=== PATIENT | female | born 1990 | race Caucasian/White ===

== ENCOUNTER → 2017-08-05 | Outpatient (CLI) | payer OTHER, MEDICAID ==
[~2017-08-05] MED LIST: AZIT-21 PO; CEPH500C PO; DCS100C PO; DOCU100C37 PO; FLC150T PO; FLUO20CA42 PO; HYDR-3720 PO; IBP800T PO; IBUP-1780 PO; OXYC-465 PO; PEDI1TAB35 PO; PREN1TAB86 PO
--- NOTE | 2017-08-05 19:55 | Diagnostic Imaging Report ---
EXAM: CERVICAL SPINE 3 VIEWS OR LESS INDICATION: CERVICAL PAIN/HEADACHE FAMILY HISTORY OF CERVICAL STENOSIS COMPARISON: None. FINDINGS: Normal alignment. Vertebral body heights are preserved. No substantial spondylotic change. No acute osseous findings. Normal prevertebral soft tissues. IMPRESSION: Normal cervical spine radiographs. Dictated by: Dictated on workstation # [id number]
== END ==
LOC: RAD 17:07
PROVIDERS: ATTEND Chiropractor Sports Physician
DX: M54.2 Cervicalgia (principal); R51 Headache; Z82.69 Family history of other diseases of the musculoskeletal system and connective tissue
CPT/HCPCS: 72040

== ENCOUNTER → 2017-08-09 | Outpatient (CLI) | payer OTHER, MEDICAID ==
[~2017-08-09] VITALS: Ht 157.5 cm; Wt 79.4 kg
[~2017-08-09] MED LIST changes: +LIDOCAINE 1% INJ 20 ML (XYLOCAINE) VIAL INJ ONE; +LIDOCAINE PF 1% 5 ML (XYLOCAINE) AMP ONE; +cefTRIAXone 250 MG (ROCEPHIN) VIAL IM NR
[2017-08-09 16:11] VITALS: BP 131/82
== END ==
LOC: SDC 15:17
PROVIDERS: ATTEND Obstetrics & Gynecology
DX: A54.9 Gonococcal infection, unspecified (principal)
CPT/HCPCS: 96372

== ENCOUNTER → 2018-11-06 | Outpatient (CLI) | payer MEDICAID, OTHER ==
[~2018-11-06] MED LIST changes: -LIDOCAINE 1% INJ 20 ML (XYLOCAINE) VIAL INJ ONE; -LIDOCAINE PF 1% 5 ML (XYLOCAINE) AMP ONE; -cefTRIAXone 250 MG (ROCEPHIN) VIAL IM NR
== END ==
LOC: LABNPT 12:05
PROVIDERS: ATTEND Nurse Practitioner Family
DX: R30.9 Painful micturition, unspecified (principal)
CPT/HCPCS: 87088

== ENCOUNTER → 2020-07-09 | Outpatient (CLI) | payer OTHER ==
[~2020-07-09] MED LIST changes: -OXYC-465 PO; +OXYC-556 PO
== END ==
LOC: LABNPT 11:14
PROVIDERS: ATTEND Obstetrics & Gynecology
DX: O14.90 Unspecified pre-eclampsia, unspecified trimester (principal); Z3A.00 Weeks of gestation of pregnancy not specified
CPT/HCPCS: 82570; 84156

== ENCOUNTER 2020-07-10 18:12 | Outpatient (CLI) | payer OTHER, MEDICAID ==
[~2020-07-10] VITALS: Ht 157.5 cm; Wt 94.4 kg
--- NOTE | 2020-07-10 18:30 | NUR ---
DANIELLA BALBUENA presented to unit via ambulation from ED with c/o headache. Pt. weighed, gowned, voided, and to bed. EFHM and TOCO applied, VS taken. Pt.J oriented to bed controls, call light, TV, heat, and A/C controls.
--- NOTE | 2020-07-10 18:48 | NUR ---
twin . Twin A -female- located in Lt.lower abd. Twin B-male- located in upper Rt./mid abd. reports +FM. denies vaginal bleeding, leaking fluid & ctx's @ time. +FM. reports elevated BP in office yesterday. LYMAN today unrelieved with Tylenol. LYMAN located frontal & extending up middle of head and down neck. reports "floaters" yesterday, denies today.
[2020-07-10 18:50] VITALS: BP 166/100
[2020-07-10 19:00] VITALS: BP 154/98
--- NOTE | 2020-07-10 19:10 | NUR ---
Report given to DENNISE Silver.
[2020-07-10 19:11] LABS: BILIRUBIN,URINE NEGATIVE (NEGATIVE); COLOR,URINE YELLOW; GLUCOSE, URINE (UA) NEGATIVE (NEGATIVE); KETONES,URINE NEGATIVE (NEGATIVE); LEUKOCYTE ESTERASE ,URINE 1+ (NEGATIVE); NITRITE,URINE NEGATIVE (NEGATIVE); PH,URINE 6.5 (5-9); PROTEIN,URINE NEGATIVE (NEGATIVE)
[2020-07-10 19:16] LABS: CLARITY,URINE SL CLOUDY
[2020-07-10 19:17] LABS: BACTERIA,URINE MODERATE /HPF; WBC,URINE 0-2 /HPF
--- NOTE | 2020-07-10 19:31 | NUR ---
Dr. Villalobos called with report of pt. Informed that pt has had a headache today that comes and goes with Tylenol. Pt. rates pain at a five at the worst. Pt denies seeing spots or blurry vision. Informed of pt. current blood pressures and other vitals. UA reviewed with DrGeorge Informed that pt SVE showed a closed cervix with no contractions. informed that babies strips are reactive. states that labs were done in the office yesterday, and were reassuring. states that he is comfortable discharging pt at this time. Pt can follow up in the office if symptoms worsen.
--- NOTE | 2020-07-10 19:50 | NUR ---
Nurse reviewed pt discharge paperwork. Pt. left unit without problem. Pt. shows no s/s of distress.
--- NOTE | 2020-07-11 08:08 | Physician Query-Final Dx ---
ANTOINE MCCRAY 07/11/20 0808: Clinic Account Progress/Dx Physician Query: Please give diagnosis Please include # weeks gestation Date of Service Jul 10, 2020 at 18:12 DENNIS MAYO MD 07/11/20 0917: Clinic Account Progress/Dx DIAGNOSIS: Diagnosis at 30 weeks with false labor ANTOINE MCCRAY Jul 11, 2020 08:08 DENNIS MAYO MD Jul 11, 2020 09:17
== END 2020-07-10 19:50 | disposition home or self-care (01) ==
LOC: WSo 18:12 → LDRP 18:14 → WSo 19:50
PROVIDERS: ATTEND Obstetrics & Gynecology
DX: O47.03 False labor before 37 completed weeks of gestation, third trimester (principal); Z3A.30 30 weeks gestation of pregnancy
CPT/HCPCS: 81000; 87088; G0463; 99213

== ENCOUNTER 2020-09-02 05:46 | Outpatient (RCR) | payer OTHER, MEDICAID ==
[~2020-09-02] VITALS: Ht 157 cm; Wt 76.8 kg
[~2020-09-02 05:46] MED LIST changes: +MULT-1136 PO
== END 2020-09-02 16:00 | disposition home or self-care (01) ==
LOC: PREOP 05:46
PROVIDERS: ATTEND Obstetrics & Gynecology
DX: Z01.818 Encounter for other preprocedural examination (principal)

== ENCOUNTER 2020-10-16 05:47 | Outpatient (RCR) | payer OTHER, MEDICAID | END 2021-01-14 | disposition home or self-care (01) | LOC: PREOP 05:47 | PROVIDERS: ATTEND Obstetrics & Gynecology | DX: Z01.818 Encounter for other preprocedural examination (principal) ==

== ENCOUNTER 2021-02-11 17:11 | Day surgery (SDC) | payer OTHER, MEDICAID ==
[2021-02-11] VITALS (9 sets, daily range): BP systolic 108–142; BP diastolic 62–95
[~2021-02-11] VITALS: Ht 157.5 cm; Wt 83.3 kg
[~2021-02-11 17:11] MED LIST changes: +LIDOCAINE PF 2% 5 ML (XYLOCAINE) VIAL ONE; +MIDAZOLAM 2 MG/2 ML (VERSED) VIAL ONE; +ONDANSETRON 4 MG/2 ML (SDV) Z0FRAN ONE; +fentaNYL INJ 100 MCG/2 ML AMP ONE; +proPOfol 200 MG/20 ML (DIPRIVAN) VIAL IV ONE
[2021-02-11] MEDS: LACTATED RINGERS 1,000 ML IV PRN ×3 (17:25→18:11)
[2021-02-11] MEDS ORDERED: ceFAZolin INJECTION 1,000 MG ONE (18:13)
[2021-02-11] MEDS ORDERED: IBUP-1780 PO (18:23)
--- NOTE | 2021-02-11 18:24 | Discharge Inst-Surgical ---
Discharge Inst-Surgical Depart Medication/Instructions New, Converted or Re-Newed RX: RX on Chart Consults/Follow Up Patient Instructions: As directed Orders & Referrals Follow Up Appt: Call to make follow up appt. for patient in 2 weeks. Activity: Rest for 24 hours, than as tolerated. Please call in RX to patient pharmacy. Diet: As tolerated- may shower or tub bathe as desired. No driving for 24 hours, no alcoholic beverages for 24 hours, and nothing per vagina (no tampons, douching, or intercourse) for 2 weeks. Patient to return to the clinic as soon as possible for: Temperature greater than 101F, Severe Pain, Foul discharge from incision or vagina, Excessive Bleeding (more than a period). Activity Activity as Tolerated: No Diet Discharge Diet: No Restrictions DENNIS MAYO MD Feb 11, 2021 18:24
--- NOTE | 2021-02-11 18:25 | Progress Note-Pre Operative ---
Pre-Operative Progress Note H&P Reviewed The H&P was reviewed, patient examined and no changes noted. Date Seen by Provider: Feb 11, 2021 Time Seen by Provider: 18:25 Date H&P Reviewed: Feb 11, 2021 Time H&P Reviewed: 18:25 Pre-Operative Diagnosis: demise at 10 weeks gestation/missed AB DENNIS MAYO MD Feb 11, 2021 18:25
--- NOTE | 2021-02-11 18:26 | Progress Note-Post Operative ---
Post-Operative Progess Note Surgeon (s)/Help Desk Engineer (s) Surgeon DENNIS MAYO MD Help Desk Engineer: No Pre-Operative Diagnosis demise at 10 weeks gestation/missed AB Post-Operative Diagnosis Same Procedure & Operative Findings Date of Procedure 02/11/21 Procedure Performed/Findings D&C for missed AB at 10 weeks gestation Anesthesia Type GETA Estimated Blood Loss Estimated blood loss (mL): 50 cc Specimens/Packing Specimens Removed POC / uterine contents DENNIS MAYO MD Feb 11, 2021 18:26
[2021-02-11] MEDS ORDERED: D5 LR IV SOLUTION 1,000 ML IV SCH (18:30)
[2021-02-11] MEDS ORDERED: oxyCODONE/APAP 5/325MG (PERCOCET 5) TABLET PO PRN (18:30)
[2021-02-11] MEDS ORDERED: KETOROLAC 30 MG/ML VIAL IVP ONE (18:30)
[2021-02-11] MEDS ORDERED: fentaNYL INJ 100 MCG/2 ML AMP IVP PRN (18:30)
[2021-02-11] MEDS ORDERED: ONDANSETRON 4 MG/2 ML (SDV) Z0FRAN IVP PRN ×2 (18:30→19:00)
[2021-02-11] MEDS ORDERED: SEVOFLURANE (ULTANE) 15 ML INHAL SOLN ONE (18:46)
[2021-02-11] MEDS ORDERED: HYDROmorphone 2 MG/ML VIAL (DILAUDID) IV ONE (19:00)
--- NOTE | 2021-02-11 19:04 | Anesthesia-General Post-Op ---
General Patient Condition Mental Status/LOC: Same as Preop Cardiovascular: Satisfactory Nausea/Vomiting: Absent Respiratory: Satisfactory Pain: Controlled Complications: Absent Post Op Complications Complications None Follow Up Care/Instructions Patient Instructions None needed. Anesthesia/Patient Condition Patient Condition Patient is doing well, no complaints, stable vital signs, no apparent adverse anesthesia problems. No complications reported per nursing. D/C home per [facility] Criteria: Yes JESUS MANUEL COHEN CRNA Feb 11, 2021 19:04
--- NOTE | 2021-02-12 06:16 | OPERATIVE REPORT ---
DATE OF SERVICE: 02/11/2021 PREOPERATIVE DIAGNOSES: demise at 10 weeks' gestation/missed . POSTOPERATIVE DIAGNOSIS: demise at 10 weeks' gestation/missed . OPERATIVE PROCEDURE: D and C for first trimester missed . OPERATIVE DESCRIPTION: With the patient in the supine position under satisfactory general anesthesia, she was repositioned in dorsal lithotomy position in the [facility] stirrups and then prepped and draped in the usual fashion for vaginal surgery. The patient had voided prior to coming to the operating room. Weighted speculum placed in posterior fornix of vagina, cervix exposed and grasped anteriorly with single tooth tenaculum. Uterus was sounded to 14 cm with uterine sound. The cervix inserted dilated with Nawaf dilators and then the final step in dilation was a #19 Rajwinder dilator. A #10 curved suction curette was introduced and large amount of trophoblastic appearing tissue, blood clot, placental tissue, amniotic fluid and debris was evacuated from the uterus. The uterine cavity was sharply curettaged in all 4 quadrants to good uterine cry. The cord was checked and curette was reintroduced and all blood clot and debris evacuated from the uterus. The suction curette was removed. There was minimal bleeding from the cervical os. The tenaculum was removed from the cervix. There was a little bit of oozing from both puncture sites. This was touched with silver nitrate to effect hemostasis. Sponge and needle counts were correct on completion of the procedure. Blood loss was around 50 mL. The patient tolerated the procedure well and was uneventfully awakened from her general anesthesia and transferred to the recovery room in stable condition with plans for discharge home PAR. Job ID: [id number] DocumentID: [id number] Dictated Date: 02/11/2021 20:17:01 Fire Production Operator Date: 02/12/2021 06:16:21 Dictated By: DENNIS MAYO MD
== END 2021-02-11 20:30 | disposition home or self-care (01) ==
LOC: SDC 17:11 → WS 17:48 → SDC 20:30
PROVIDERS: ATTEND Obstetrics & Gynecology
DX: O02.1 Missed abortion (principal); Z88.1 Allergy status to other antibiotic agents
CPT/HCPCS: 88305

== ENCOUNTER 2021-02-13 11:21 | Emergency (ER) | payer OTHER, MEDICAID ==
[~2021-02-13] VITALS: Ht 157 cm; Wt 81.6 kg
[~2021-02-13 11:21] MED LIST changes: -LIDOCAINE PF 2% 5 ML (XYLOCAINE) VIAL ONE; -MIDAZOLAM 2 MG/2 ML (VERSED) VIAL ONE; -ONDANSETRON 4 MG/2 ML (SDV) Z0FRAN ONE; -fentaNYL INJ 100 MCG/2 ML AMP ONE; -proPOfol 200 MG/20 ML (DIPRIVAN) VIAL IV ONE
[2021-02-13 12:05] LABS: BILIRUBIN,URINE NEGATIVE (NEGATIVE); CLARITY,URINE CLEAR; COLOR,URINE RED; GLUCOSE, URINE (UA) NEGATIVE (NEGATIVE); KETONES,URINE NEGATIVE (NEGATIVE); LEUKOCYTE ESTERASE ,URINE 1+ (NEGATIVE); NITRITE,URINE NEGATIVE (NEGATIVE); PROTEIN,URINE TRACE (NEGATIVE)
[2021-02-13 12:12] LABS: BASOPHILS # (AUTO) 0.1 10^3/uL (0.0-0.1); BASOPHILS % (AUTO) 1 % (0-10); EOSINOPHILS # (AUTO) 0.1 10^3/uL (0.0-0.3); EOSINOPHILS % (AUTO) 1 % (0-10); HEMATOCRIT 42 % (35-52); HEMOGLOBIN 13.8 g/dL (11.5-16.0); LYMPHOCYTES # (AUTO) 3.2 10^3/uL (1.0-4.0); LYMPHOCYTES % (AUTO) 36 % (12-44); MEAN CORPUSCULAR HEMOGLOBIN 28 pg (25-34); MEAN CORPUSCULAR HGB CONC 33 g/dL (32-36); MEAN CORPUSCULAR VOLUME 85 fL (80-99); MEAN PLATELET VOLUME 9.5 fL (9.0-12.2); MONOCYTES # (AUTO) 0.4 10^3/uL (0.0-1.0); MONOCYTES % (AUTO) 5 % (0-12); NEUTROPHILS % (AUTO) 57 % (42-75); PLATELET COUNT 321 10^3/uL (130-400); WHITE BLOOD COUNT 8.8 10^3/uL (4.3-11.0)
[2021-02-13] MEDS ORDERED: IOHEXOL 350 MG/ML 100 ML (OMNIPAQUE 350) VIAL IV ONE (12:15)
[2021-02-13] MEDS ORDERED: CATHETER FLUSH 10 ML SYR IV PRN (12:15)
[2021-02-13] MEDS ORDERED: NS 100 ML (IVPB) BAG IV ONE (12:15)
[2021-02-13] MEDS ORDERED: HOLD METFORMIN - RECEIVED CONTRAST 20 ML VIAL IV SCH (12:15)
[2021-02-13 12:31] LABS: BACTERIA,URINE NEGATIVE /HPF; RBC,URINE >100 /HPF; WBC,URINE 0-2 /HPF
[2021-02-13 12:33] LABS: ALBUMIN 4.3 GM/DL (3.2-4.5); CHLORIDE 105 MMOL/L (98-107); SODIUM 138 MMOL/L (135-145)
[2021-02-13 12:35] LABS: CALCIUM 8.7 MG/DL (8.5-10.1)
[2021-02-13 12:36] LABS: ERYTHROCYTE SEDIMENTATION RATE 7 MM/HR (0-20); GLUCOSE 79 MG/DL (70-105); TOTAL PROTEIN 7.6 GM/DL (6.4-8.2)
[2021-02-13 12:37] LABS: CARBON DIOXIDE 21 MMOL/L (21-32)
[2021-02-13 12:38] LABS: BILIRUBIN,TOTAL 0.3 MG/DL (0.1-1.0)
[2021-02-13 12:39] LABS: ALKALINE PHOSPHATASE 71 U/L (40-136)
[2021-02-13 12:40] LABS: CREATININE SERUM 0.77 MG/DL (0.60-1.30); GFR ESTIMATED > 60
[2021-02-13 12:41] LABS: BUN/CREATININE RATIO 8
[2021-02-13 12:42] LABS: ALANINE AMINOTRANSFERASE 24 U/L (0-55)
[2021-02-13 12:43] LABS: MAGNESIUM 1.9 MG/DL (1.6-2.4)
[2021-02-13 13:03] LABS: TSH (THYROID ANALYZER) 1.45 UIU/ML (0.35-4.94)
--- NOTE | 2021-02-13 14:06 | Diagnostic Imaging Report ---
PROCEDURE: CT angiography of the head and CT angiography of the neck with and without contrast. TECHNIQUE: Contiguous noncontrast images were obtained from the skull base through the vertex. After intravenous contrast administration, helical CT angiography of the neck was performed. Source data was reformatted into 3D MIP projections. Delayed post contrast acquisition was also obtained. Auto Exposure Controls were utilized during the CT exam to meet ALARA standards for radiation dose reduction. DATE: February 13, 2021. COMPARISON: None. INDICATION: 30-year-old female, loss of vision this morning with left hand and right leg numbness. FINDINGS: There is no abnormal intracranial enhancement. The ventricles and cerebral spinal fluid spaces are of normal size and configuration for the patient's age. There is no mass effect or midline shift. There is no acute intracranial hemorrhage. There is no abnormal extra-axial fluid collection. The visualized portions of the paranasal sinuses, mastoid air cells, and middle ears are well aerated. The left common carotid artery is patent. The left internal carotid artery is patent. There is no stenosis of the left internal carotid artery. The left middle cerebral artery is patent. The left anterior cerebral artery is patent. The right anterior cerebral artery is patent. The right middle cerebral artery is patent. The right internal carotid artery is patent. There is no stenosis of the right internal carotid artery. The right common carotid artery is patent. There is conventional origin of the left vertebral artery. The left vertebral artery is patent. The basilar artery is patent. The right and left posterior cerebral arteries are patent. The right and left posterior inferior cerebellar arteries are patent. The right vertebral artery is patent and conventional in origin. There is no identified aneurysm. There is no identified dissection. The visualized portions of the lungs are clear. There is a low-attenuation left thyroid nodule on axial image 129 measuring 8 mm in size. There is a heterogeneous attenuation right thyroid nodule on axial image 152 which measures 8 mm in size. There is no acute bony abnormality. IMPRESSION: 1. Patent arterial head and neck vasculature without high-grade stenosis, aneurysm, dissection, or occlusion. 2. No CT apparent acute intracranial abnormality. 3. Further evaluation with MRI brain without and with intravenous contrast would be recommended for patient symptoms, especially given patient age, for evaluation of potential processes which may not be visible on CT including but not limited to multiple sclerosis. Dictated by: Dictated on workstation # [id number]
--- NOTE | 2021-02-13 14:30 | ED Neurological Problem ---
General Chief Complaint: Eye Problems Stated Complaint: L HAND NUMBNESS, FLOATERS Nursing Triage Note: PY PRESENTS TO ED VIA POV FROM HOME WITH COMPLAINTS OF BLURRY VISION/FLOATERS SINCE 0900 THIS AM. PT ALSO REPORTS L ARM NUMBNESS AND R LEG NUMBESS AROUND 1000 THIS AM. REPORTS IT LASTED A FEW MINUTES. Nursing Sepsis Screen: No Definite Risk Source: patient Exam Limitations: no limitations History of Present Illness Date Seen by Provider: Feb 13, 2021 Time Seen by Provider: 11:37 Initial Comments This 30-year-old young lady presents to the emergency room with complaints of changes in her vision and paresthesias. Symptoms started with a slight headache when she woke up. Then around 0900 she developed loss of bilateral peripheral vision and visual disturbances described as floaters. She had intermittent vision disturbances until shortly before arrival to the emergency room. She reports then developing lightheadedness followed by numbness in the left hand and right leg. Those symptoms lasted a few minutes. She states her symptoms are now resolved. She had one prior episode of similar symptoms over a year ago when she was hospitalized for preeclampsia. She denies any significant history of headaches or migraines of this nature in the past. She had a D&C procedure performed for a missed continuous [address] Villalob[address]. She had an uneventful recovery until this morning. She is also being treated for bacterial vaginosis. Allergies and Home Medications Allergies Coded Allergies: No Known Drug Allergies (Unverified , 08/29/20) Home Medications Ibuprofen 800 Mg Tablet, 800 MG PO Q6H PRN for PAIN Prescribed by: DENNIS ALMONTE on 02/11/21 1823 Multivitamin 1 Each Tablet, 1 EACH PO DAILY, (Reported) Patient Home Medication List Home Medication List Reviewed: Yes Review of Systems Review of Systems Constitutional: no symptoms reported Eyes: See HPI Ears, Nose, Mouth, Throat: no symptoms reported Respiratory: no symptoms reported Cardiovascular: see HPI Gastrointestinal: no symptoms reported Genitourinary: see HPI : No Musculoskeletal: no symptoms reported Skin: no symptoms reported Psychiatric/Neurological: See HPI Endocrine: No Symptoms Reported Hematologic/Lymphatic: No Symptoms Reported Past Etadjav-Iwgvlf-Paicms Hx Past Med/Social Hx: Reviewed and Corrections made Patient Social History Alcohol Use: Denies Use Smoking Status: Current Someday Smoker Type Used: Cigarettes 2nd Hand Smoke Exposure: No Recent Infectious Disease Expo: No Recent Hopitalizations: Yes (07/13/20-TWINS) Immunizations Up To Date Tetanus Booster (TDap): Unknown Date of Influenza Vaccine: Jul 29, 2020 Seasonal Allergies Seasonal Allergies: Yes Past Medical History Surgeries: Yes (Broken elbow 1994, Fowler Teeth 2011, D&C) Adenoidectomy, Section, Orthopedic, Tonsillectomy Respiratory: No Cardiac: No Neurological: Yes (TENSION HEADACHES) Headaches /Migraines Reproductive Disorders: Yes Female Reproductive Disorders: Menstrual Problems, Endometriosis, Polycystic Ovarian Dis Sexually Transmitted Disease: No HIV/AIDS: No Genitourinary: Yes UTI-Chronic Gastrointestinal: No Musculoskeletal: Yes (Fractured elbow at 5 years old) Fractures Endocrine: No HEENT: No (GLASSES) Loss of Vision: Denies Hearing Impairment: Denies Cancer: No Psychosocial: Yes (While ) Depression Integumentary: No Blood Disorders: No Adverse Reaction/Blood Tranf: No (N/A) Family Medical History Alcoholism 03 FATHER Family history: Diabetes mellitus Grandparents (Maternal Grandfather Paternal Grandfather) Family history: Hypertension 03 MOTHER History of drug abuse 03 MOTHER (Narcotics) Hypertension Grandparents (Maternal Grandmother) Psychosocial problem 03 MOTHER (Depression and bipolar) No Family History of: Cancer Congenital heart disease Congestive heart failure Family history: Arthritis Family history: Asthma Family history: Breast disease Family history: Cardiovascular disease Family history: Thyroid disorder Headache Hearing loss Heart disease History of - anemia Hypercholesterolemia Infertile Kidney disease Seizure disorder Stroke Tuberculosis No Pertinent Family Hx Physical Exam Vital Signs Vital Signs - First Documented 02/13/21 02/13/21 11:38 11:56 Temp 36.1 Pulse 83 Resp 16 B/P (MAP) 144/95 (111) Pulse Ox 100 Capillary Refill : Less Than 3 Seconds Height, Weight, BMI Height: 5'2.00" Weight: 175lbs. 0.0oz. 79.284163fu; 33.00 BMI Method:Stated General Appearance: WD/WN, no apparent distress HEENT: PERRL/EOMI, normal ENT inspection, TMs normal, pharynx normal Neck: normal inspection Respiratory: lungs clear, normal breath sounds, no respiratory distress, no accessory muscle use Cardiovascular: regular rate, rhythm, no edema, no murmur Gastrointestinal: non tender, soft Extremities: normal inspection, no pedal edema Neurologic/Psychiatric: head turbine operator II-XII nml as tested, no motor/sensory deficits, alert, normal mood/affect, oriented x 3 Crainal Nerves: normal hearing, normal speech, PERRL Coordination/Gait: normal finger to nose (Normal fcsb-qa-nypp), normal gait Motor/Sensory: no motor deficit, no sensory deficit Skin: normal color, warm/dry Progress/Results/Core Measures Results/Orders Lab Results Laboratory Tests Test 02/13/21 11:56 02/13/21 12:03 Range/Units Urine Color RED H Urine Clarity CLEAR Urine pH 7.0 5-9 Urine Specific [place] <=1.005 1.016-1.022 Urine Protein TRACE H NEGATIVE Urine Glucose (UA) NEGATIVE NEGATIVE Urine Ketones NEGATIVE NEGATIVE Urine Nitrite NEGATIVE NEGATIVE Urine Bilirubin NEGATIVE NEGATIVE Urine Urobilinogen 0.2 < = 1.0 MG/DL Urine Leukocyte Esterase 1+ H NEGATIVE Urine RBC (Auto) 3+ H NEGATIVE Urine RBC >100 H /HPF Urine WBC 0-2 /HPF Urine Squamous Epithelial Cells 5-10 /HPF Urine Crystals NONE /LPF Urine Bacteria NEGATIVE /HPF Urine Casts NONE /LPF Urine Mucus NEGATIVE /LPF Urine Culture Indicated NO White Blood Count 8.8 4.3-11.0 10^3/uL Red Blood Count 4.98 3.80-5.11 10^6/uL Hemoglobin 13.8 11.5-16.0 g/dL Hematocrit 42 35-52 % Mean Corpuscular Volume 85 80-99 fL Mean Corpuscular Hemoglobin 28 25-34 pg Mean Corpuscular Hemoglobin Concent 33 32-36 g/dL Red Cell Distribution Width 13.9 10.0-14.5 % Platelet Count 321 130-400 10^3/uL Mean Platelet Volume 9.5 9.0-12.2 fL Immature Granulocyte % (Auto) 0 % Neutrophils (%) (Auto) 57 42-75 % Lymphocytes (%) (Auto) 36 12-44 % Monocytes (%) (Auto) 5 0-12 % Eosinophils (%) (Auto) 1 0-10 % Basophils (%) (Auto) 1 0-10 % Neutrophils # (Auto) 5.0 1.8-7.8 10^3/uL Lymphocytes # (Auto) 3.2 1.0-4.0 10^3/uL Monocytes # (Auto) 0.4 0.0-1.0 10^3/uL Eosinophils # (Auto) 0.1 0.0-0.3 10^3/uL Basophils # (Auto) 0.1 0.0-0.1 10^3/uL Immature Granulocyte # (Auto) 0.0 0.0-0.1 10^3/uL Erythrocyte Sedimentation Rate 7 0-20 MM/HR Sodium Level 138 135-145 MMOL/L Potassium Level 4.0 3.6-5.0 MMOL/L Chloride Level 105 98-107 MMOL/L Carbon Dioxide Level 21 21-32 MMOL/L Anion Gap 12 5-14 MMOL/L Blood Urea Nitrogen 6 L 7-18 MG/DL Creatinine 0.77 0.60-1.30 MG/DL Estimat Glomerular Filtration Rate > 60 BUN/Creatinine Ratio 8 Glucose Level 79 70-105 MG/DL Calcium Level 8.7 8.5-10.1 MG/DL Corrected Calcium 8.5 8.5-10.1 MG/DL Magnesium Level 1.9 1.6-2.4 MG/DL Total Bilirubin 0.3 0.1-1.0 MG/DL Aspartate Amino Transf (AST/SGOT) 27 5-34 U/L Alanine Aminotransferase (ALT/SGPT) 24 0-55 U/L Alkaline Phosphatase 71 40-136 U/L C-Reactive Protein High Sensitivity 0.19 0.00-0.50 MG/DL Total Protein 7.6 6.4-8.2 GM/DL Albumin 4.3 3.2-4.5 GM/DL TSH [place] Testing 1.45 0.35-4.94 UIU/ML My Orders Orders - DRAKE BANKS MD Cbc With Automated Diff (02/13/21 11:56) Comprehensive Metabolic Panel (02/13/21 11:56) Magnesium (02/13/21 11:56) Thyroid Analyzer (02/13/21 11:56) Ua Culture If Indicated (02/13/21 11:56) Ekg Tracing (02/13/21 11:56) Monitor-Rhythm Ecg Trace Only (02/13/21 11:56) Hs C Reactive Protein (02/13/21 11:56) Erythrocyte Sedimentation Rate (02/13/21 11:56) Ct Angio Head/Neck (02/13/21 11:56) Iohexol Injection (Omnipaque 350 Mg/Ml 1 (02/13/21 12:15) Received Contrast (Hold Metformin- Contr (02/13/21 12:15) Sodium Chloride Flush (Catheter Flush Sy (02/13/21 12:15) Ns (Ivpb) (Sodium Chloride 0.9% Ivpb Bag (02/13/21 12:15) Medications Given in ED Current Medications Medications Dose Ordered Sig/Samantha Route Start Time Stop Time Status Last Admin Dose Admin Iohexol 75 ml ONCE ONCE IV 02/13/21 12:15 02/13/21 12:16 DC 02/13/21 13:20 75 ML Sodium Chloride 10 ml NEEDED PRN IV 02/13/21 12:15 02/13/21 14:44 DC 02/13/21 13:21 10 ML Sodium Chloride 100 ml ONCE ONCE IV 02/13/21 12:15 02/13/21 12:16 DC 02/13/21 13:21 80 ML Vital Signs/I&O 02/13/21 02/13/21 02/13/21 11:38 11:56 14:45 Temp 36.1 36.0 36.0 Pulse 83 83 69 Resp 16 20 20 B/P (MAP) 144/95 (111) 124/80 (111) Pulse Ox 100 100 100 Blood Pressure Mean: 111 Progress Progress Note #1: Time: 14:25 Progress Note Work-up was grossly unremarkable. Patient symptoms have not returned. Based on radiologist interpretation of the CT angiogram head and neck, MRI with contrast was offered to the patient. She declines and would like to follow-up with a primary care provider. See discharge instructions. Progress Note #2: Progress Note After further review of patient's case, I contacted her by phone to discuss use of metronidazole. Metronidazole does have known neurologic adverse reactions that could be like those she experienced today. I offered to switch out her metronidazole with clindamycin. She would like to do so. A clindamycin presc ription was sent to [facility]. It is also possible that she was having some cerebrovascular perfusion deficit due to vasovagal response. She did describe some abdominal pelvic cramping prior to the episode. She did also take metronidazole this morning before the episode. Initial ECG Impression Date: Feb 13, 2021 Initial ECG Impression Time: 12:04 Initial ECG Rate: 71 Initial ECG Rhythm: Normal Sinus Comment Sinus arrhythmia, possibly due to respiratory dependent rate changes and young age. No ST elevation or depression. No abnormal intervals or axis deviation. Diagnostic Imaging Diagonstic Imaging: CT Plain Films/CT/US/NM/MRI: other (Angiogram head and neck) Comments CT angiogram head and neck reviewed by me and report reviewed. See report below: NAME: DANIELLA BALBUENA [facility] REC#: [id number] PT STATUS: REG ER : 1990 PHYSICIAN: DRAKE BANKS MD ADMIT DATE: 02/13/21/ER Draft Date of Exam:02/13/21 CT ANGIO HEAD/NECK PROCEDURE: CT angiography of the head and CT angiography of the neck with and without contrast. TECHNIQUE: Contiguous noncontrast images were obtained from the skull base through the vertex. After intravenous contrast administration, helical CT angiography of the neck was performed. Source data was reformatted into 3D MIP projections. Delayed post contrast acquisition was also obtained. Auto Exposure Controls were utilized during the CT exam to meet ALARA standards for radiation dose reduction. DATE: February 13, 2021. COMPARISON: None. INDICATION: 30-year-old female, loss of vision this morning with left hand and right leg numbness. FINDINGS: There is no abnormal intracranial enhancement. The ventricles and cerebral spinal fluid spaces are of normal size and configuration for the patient's age. There is no mass effect or midline shift. There is no acute intracranial hemorrhage. There is no abnormal extra-axial fluid collection. The visualized portions of the paranasal sinuses, mastoid air cells, and middle ears are well aerated. The left common carotid artery is patent. The left internal carotid artery is patent. There is no stenosis of the left internal carotid artery. The left middle cerebral artery is patent. The left anterior cerebral artery is patent. The right anterior cerebral artery is patent. The right middle cerebral artery is patent. The right internal carotid artery is patent. There is no stenosis of the right internal carotid artery. The right common carotid artery is patent. There is conventional origin of the left vertebral artery. The left vertebral artery is patent. The basilar artery is patent. The right and left posterior cerebral arteries are patent. The right and left posterior inferior cerebellar arteries are patent. The right vertebral artery is patent and conventional in origin. There is no identified aneurysm. There is no identified dissection. The visualized portions of the lungs are clear. There is a low-attenuation left thyroid nodule on axial image 129 measuring 8 mm in size. There is a heterogeneous attenuation right thyroid nodule on axial image 152 which measures 8 mm in size. There is no acute bony abnormality. IMPRESSION: 1. Patent arterial head and neck vasculature without high-grade stenosis, aneurysm, dissection, or occlusion. 2. No CT apparent acute intracranial abnormality. 3. Further evaluation with MRI brain without and with intravenous contrast would be recommended for patient symptoms, especially given patient age, for evaluation of potential processes which may not be visible on CT including but not limited to multiple sclerosis. Dictated on workstation # [id number] Dict: 02/13/21 1341 Trans: 02/13/21 1405 [id number] Interpreted by: PAVAN FAIR MD Departure Impression Primary Impression: Paresthesias Additional Impressions: Changes in vision Lightheadedness Disposition: 01 HOME, SELF-CARE Condition: Improved Departure-Patient Inst. Decision time for Depature: 14:27 Referrals: DENNIS VILLALOBOS MD (PCP) Primary Care Physician Patient Instructions: Paresthesia (DC) Add. Discharge Instructions: Establish with a primary care provider soon as possible. Return to the emergency room if you have recurrent symptoms. Please try to present to the emergency room promptly so that you may be assessed while symptoms are present. Call with questions or concerns. Return to the emergency room if you have worsening or new symptoms as well. All discharge instructions reviewed with patient and/or family. Voiced understanding. Scripts Clindamycin HCl (Clindamycin HCl) 300 Mg Capsule 300 MG PO BID, #14 CAP Prov: DRAKE BANKS MD 02/13/21 Copy Copies To 1: DENNIS VILLALOBOS MD, JOSHUA T MD Feb 13, 2021 14:30
[2021-02-13 14:45] VITALS: BP 124/80
[2021-02-13] MEDS ORDERED: CLIN300C12 PO (19:28)
== END 2021-02-13 14:44 | disposition home or self-care (01) ==
LOC: EDUNIT# 11:21 → ER 11:23
DX: R20.2 Paresthesia of skin (principal); H53.9 Unspecified visual disturbance; R42 Dizziness and giddiness; F17.210 Nicotine dependence, cigarettes, uncomplicated
CPT/HCPCS: 36415; 70496; 70498; 80053; 81000; 83735; 84443; 85025; 85652; 86141; 93005; 93041

== ENCOUNTER → 2021-09-29 | Outpatient (CLI) | payer OTHER, MEDICAID ==
[~2021-09-29] MED LIST changes: +CLIN-144 PO
== END | disposition home or self-care (01) ==
LOC: PREOP 05:59
PROVIDERS: ATTEND Obstetrics & Gynecology
DX: Z01.818 Encounter for other preprocedural examination (principal)

== ENCOUNTER 2022-06-08 05:33 | Outpatient (CLI) | payer OTHER, MEDICAID ==
[~2022-06-08] VITALS: Ht 157.5 cm; Wt 90.3 kg
[2022-06-08] MEDS ORDERED: RT-ALBUINH IH (09:47)
[2022-06-08] MEDS ORDERED: MTP25TSR PO (09:47)
== END 2022-06-08 09:49 | disposition home or self-care (01) ==
LOC: PREOP 05:33
PROVIDERS: ATTEND Obstetrics & Gynecology
DX: Z01.818 Encounter for other preprocedural examination (principal); N92.1 Excessive and frequent menstruation with irregular cycle

== ENCOUNTER 2022-06-10 12:50 | Day surgery (SDC) | payer MEDICAID ==
[~2022-06-10] VITALS: Ht 157.5 cm; Wt 90.3 kg
[2022-06-10] VITALS (8 sets, daily range): BP systolic 108–122; BP diastolic 62–82
--- NOTE | 2022-06-10 11:12 | Progress Note-Post Operative ---
Post-Operative Progess Note Surgeon (s)/Police Booking Officer (s) Surgeon DENNIS MAYO MD Police Booking Officer: Moira Pre-Operative Diagnosis Menometrorrhagia Post-Operative Diagnosis Same with Appendicitis and with pathology pending Procedure & Operative Findings Date of Procedure 06/10/22 Procedure Performed/Findings Total laparoscopic hysterectomy with bilateral salpingectomy And with laparoscopic appendectomy Anesthesia Type General Estimated Blood Loss Estimated blood loss (mL): Minimal Specimens/Packing Specimens Removed Uterus and fallopian tubes And appendix DENNIS MAYO MD Jun 10, 2022 11:12
--- NOTE | 2022-06-10 11:12 | Progress Note-Pre Operative ---
Pre-Operative Progress Note Date of Available H&P: Jun 10, 2022 Date H&P Reviewed: Jun 10, 2022 Time H&P Reviewed: 13:20 History & Physical: H&P Reviewed, Patient Examed, No changes noted Changes from last HP none Pre-Operative Diagnosis: Menometrorrhagia DENNIS MAYO MD Jun 10, 2022 11:11
[~2022-06-10 12:50] MED LIST changes: +MTP25TSR PO; +RT-ALBUINH IH
[2022-06-10] MEDS ORDERED: ceFAZolin INJECTION 1,000 MG VIAL IV ONE (13:15)
[2022-06-10] MEDS: LACTATED RINGERS 1,000 ML IV PRN ×2 (13:30→15:32)
[2022-06-10 13:51] LABS: BASOPHILS # (AUTO) 0.1 10^3/uL (0.0-0.1); BASOPHILS % (AUTO) 1 % (0-10); EOSINOPHILS # (AUTO) 0.4 10^3/uL (0.0-0.3); EOSINOPHILS % (AUTO) 5 % (0-10); HEMATOCRIT 43 % (35-52); HEMOGLOBIN 15.5 g/dL (11.5-16.0); LYMPHOCYTES # (AUTO) 3.2 10^3/uL (1.0-4.0); LYMPHOCYTES % (AUTO) 38 % (12-44); MEAN CORPUSCULAR HEMOGLOBIN 29 pg (25-34); MEAN CORPUSCULAR HGB CONC 36 g/dL (32-36); MEAN CORPUSCULAR VOLUME 81 fL (80-99); MEAN PLATELET VOLUME 9.3 fL (9.0-12.2); MONOCYTES # (AUTO) 0.5 10^3/uL (0.0-1.0); MONOCYTES % (AUTO) 6 % (0-12); NEUTROPHILS # (AUTO) 4.1 10^3/uL (1.8-7.8); NEUTROPHILS % (AUTO) 49 % (42-75); PLATELET COUNT 334 10^3/uL (130-400); WHITE BLOOD COUNT 8.3 10^3/uL (4.3-11.0)
[2022-06-10] MEDS ORDERED: LIDOCAINE/EPI 2% 1:200,00 (XYLOCAINE) 20 ML VIAL ONE (14:33)
[2022-06-10] MEDS ORDERED: ONDANSETRON 4 MG/2 ML (SDV) Z0FRAN ONE (14:38)
[2022-06-10] MEDS ORDERED: proPOfol 200 MG/20 ML (DIPRIVAN) VIAL IV ONE (14:38)
[2022-06-10] MEDS ORDERED: fentaNYL INJ 100 MCG/2 ML AMP ONE ×2 (14:38→16:10)
[2022-06-10] MEDS ORDERED: ROCURONIUM 50 MG/5 ML (ZEMURON) VIAL IV ONE (14:38)
[2022-06-10] MEDS ORDERED: LIDOCAINE PF 2% 5 ML (XYLOCAINE) VIAL ONE (14:38)
[2022-06-10] MEDS ORDERED: MIDAZOLAM 2 MG/2 ML (VERSED) VIAL ONE (14:39)
[2022-06-10] MEDS: KETOROLAC 30 MG/ML VIAL IV SCH ×2 (16:00→22:12)
[2022-06-10] MEDS ORDERED: GLYCOPYRROLATE 0.2 MG/ML (ROBINUL) 2 ML VIAL ONE (16:05)
[2022-06-10] MEDS ORDERED: NEOSTIGMINE (BLOXIVERZ ) 1 MG/1ML 10 ML VIAL ONE (16:06)
[2022-06-10] MEDS ORDERED: KETOROLAC 30 MG/ML VIAL ONE (16:08)
[2022-06-10] MEDS ORDERED: SEVOFLURANE (ULTANE) 15 ML INHAL SOLN ONE (16:08)
[2022-06-10] MEDS ORDERED: fentaNYL INJ 100 MCG/2 ML AMP IVP PRN (16:15)
[2022-06-10] MEDS ORDERED: ONDANSETRON 4 MG/2 ML (SDV) Z0FRAN IVP PRN ×2 (16:15→16:30)
[2022-06-10] MEDS ORDERED: oxyCODONE/APAP 5/325MG (PERCOCET 5) TABLET PO PRN (16:15)
[2022-06-10] MEDS ORDERED: WATER (STERILE) FOR INJECTION 0 ML ONE (16:24)
[2022-06-10] MEDS ORDERED: ESTROGENS CONJ ONE (16:24)
[2022-06-10] MEDS ORDERED: MEPERIDINE (DEMEROL) INJ 50 MG/ML IVP ONE (16:30)
[2022-06-10] MEDS ORDERED: PROMETHAZINE INJ 25 MG/ML (PHENERGAN) AMP IVP ONE (16:30)
[2022-06-10] MEDS ORDERED: HYDROmorphone 2 MG/ML VIAL (DILAUDID) IV ONE (16:30)
[2022-06-10] MEDS ORDERED: morphine INJ 10 MG/ML 1ML (SYR OR VIAL) IVP ONE (16:30)
[2022-06-10] MEDS ORDERED: OXYC1TAB87 PO (16:36)
[2022-06-10] MEDS ORDERED: DOCU100C37 PO (16:36)
[2022-06-10] MEDS ORDERED: IBUP-1780 PO (16:36)
[2022-06-10] MEDS ORDERED: morphine INJ 10 MG/ML 1ML (SYR OR VIAL) ONE (16:37)
--- NOTE | 2022-06-10 16:37 | Discharge Inst-Surgical ---
Discharge Inst-Surgical Depart Medication/Instructions New, Converted or Re-Newed RX: Transmitted to Pharmacy Consults/Follow Up Patient Instructions: As directed Orders & Referrals Follow Up Appt: Return to clinic on Wednesday, June 12, 2022 for staple removal Call to make follow up appt. for patient in 4 weeks. Activity: Rest for 24 hours, than as tolerated. Wound Care: May remove Band-Aid tomorrow. Replace as desired. Keep incisions clean and dry. Wash daily with soap and water. Diet: As tolerated shower or tub bathe as desired. No driving for 24 hours, no alcoholic beverages for 24 hours, and nothing per vagina (no tampons, douching, or intercourse) for 8 weeks. Patient to return to the clinic as soon as possible for: Temperature greater than 101F, Severe Pain, Foul discharge from incision or vagina, Excessive Bleeding (more than a period). Activity Activity as Tolerated: No Diet Discharge Diet: No Restrictions DENNIS MAYO MD Jun 10, 2022 16:37
[2022-06-10] MEDS: D5 LR IV SOLUTION 1,000 ML IV SCH (18:06)
[2022-06-11] VITALS: BP 117/61
[2022-06-11] MEDS: D5 LR IV SOLUTION 1,000 ML IV SCH (01:45)
--- NOTE | 2022-06-11 03:55 | OPERATIVE REPORT ---
DATE OF SERVICE: 06/10/2022 PREOPERATIVE DIAGNOSES: Menometrorrhagia, not controlled with hormones. POSTOPERATIVE DIAGNOSES: Menometrorrhagia, not controlled with hormones, appendicitis. OPERATIVE PROCEDURE: Total laparoscopic hysterectomy with bilateral salpingectomy as well as laparoscopic appendectomy. OPERATIVE DESCRIPTION: With the patient in supine position under satisfactory general anesthesia, she was repositioned in the dorsal lithotomy position in the [facility] and prepped and draped in the usual fashion for abdominal and vaginal surgery. [place] catheter was placed in the urinary bladder, left to dependent drainage. Weighted speculum placed in posterior fornix of vagina, cervix exposed and grasped anteriorly with single tooth tenaculum. The uterus was sounded to 14 cm with uterine sound. The cervix was then serially dilated with Nawaf dilators to accommodate a Micki II manipulator, which was placed using a 6 mm x 8 cm uterine probe and a 30 mm colpotomy ring. The patient was brought in low dorsal lithotomy position. A 12 mm incision was made 10 cm superior to the umbilicus. Veress needle was placed through that incision into the abdominal cavity. Correct placement was confirmed with water drop test. The abdomen was insufflated with 2.4 liters of carbon dioxide. The Veress needle was removed and a 12 mm Optiview laparoscopic port placed. The abdominal wall was transilluminated and ports of 8 mm were placed 8 cm lateral to the umbilicus and 3 cm superior to the umbilicus through incisions of those sizes. The patient was placed in Trendelenburg allowing the bowel spill out of the pelvis. The da Eduarda column was advanced on the patient docked. The operative instruments were placed in right and left lateral ports and I retired to the da Eduarda console. The da Eduarda console using the vessel sealer on the right and a bipolar fenestrated grasper in the left, the pelvis was examined. The ovaries were normal in appearance as were the fallopian tubes. Uterus was somewhat bulky and mottled in appearance consistent with adenomyosis, which had been suspected preoperatively. The laparoscope was rotated. The appendix was very tortuous, very indurated, very nodular and very indurated and injected consistent with appendicitis. Decision was made to remove it. The mesoappendix was clamped, cauterized and divided with the vessel sealer over to the base of the appendix and then left in situ for removal after the hysterectomy. Attention was turned back to the pelvis. Right fallopian tube was grasped and elevated. The mesosalpinx was clamped, cauterized and divided. This was continued stepwise across the mesosalpinx to the uteroovarian pedicle, which was then clamped, cauterized and divided as well as was the round ligament, the broad ligament and then dissection was carried down onto the cardinal ligament. Same procedure performed on the left. Both ureters were seemed to peristalse prior to and during the dissection, The anterior lower uterine segment peritoneum was then exposed removing the vessel sealer and using a monopolar shear. The anterior lower uterine segment peritoneum was divided. The bladder was carefully dissected down off the lower uterine segment and then colpotomy incision was started at 12 o'clock position onto the colpotomy ring that was continued circumferentially until the entire colpotomy ring was exposed and then the uterus with the fallopian tubes still attached was extracted through the vagina. Vaginal cuff was closed with a single suture V-Loc barbed suture starting from the right angle and continuing across the left angle taking care to ensure inclusion of the uterine vessels bilaterally and avoiding the ureters. The last couple of stitches of that suture was used to reapproximate the bladder peritoneum onto the vaginal cuff for adhesion prevention. Sponge and needle counts were at this point were correct. The da Eduarda instruments were removed. The da Eduarda column was undocked and then using a grasper in the left lateral port, Endo-MY in the umbilical port and a scope in the right lateral port. The appendix was identified, grasped and elevated. The Endo-MY was placed across the base of appendix and fired, severing it from its attachments. The appendix was then placed in an Endobag and brought out through the umbilical port. The stump of the appendix was copiously irrigated, then treated with several drops of Betadine solution. Sponge and needle counts were correct at this point, there was no bleeding. There was no remaining abnormal pathology, the procedure was terminated. The operative instruments were removed under direct vision as were the ports. The abdomen was evacuated of insufflating gas in the process of removing the ports. The skin incisions were closed with swetha. The fascia at the supraumbilical incision was closed with [id number] suture of 2-0 Vicryl. Speculum was replaced in the vagina. The vaginal cuff examined and found completely hemostatic and completely reapproximated. Now with sponge and needle counts correct, hemostasis assured. BLOOD LOSS: Minimal. The patient was uneventfully awakened from her general anesthesia and transferred to the recovery room in stable condition. Job ID: [id number] DocumentID: [id number] Dictated Date: 06/10/2022 19:11:56 Marketing Clerk Date: 06/11/2022 03:54:59 Dictated By: DENNIS MAYO MD
[2022-06-11] MEDS: KETOROLAC 30 MG/ML VIAL IV SCH (04:08)
[2022-06-11 04:10] VITALS: BP 99/58
--- NOTE | 2022-06-11 07:12 | Progress Note ---
Standard Progress Note Progress Notes/Assess & Plan Date Seen by a Provider: Jun 11, 2022 Time Seen by a Provider: 07:11 Progress/Assessment & Plan This patient is without complaint. She is ambulating, voiding, tolerating oral intake well and has good pain control. Vital Signs Date Time Temp Pulse Resp B/P (MAP) Pulse Ox O2 Delivery O2 Flow Rate FiO2 06/11/22 04:10 36.3 62 18 99/58 (72) 96 Room Air 06/11/22 00:00 36.6 62 18 117/61 (79) 98 Room Air 06/10/22 20:55 36.6 72 18 121/67 (85) 98 Room Air 06/10/22 19:24 98 Room Air 06/10/22 17:25 Room Air 06/10/22 17:10 36.0 55 18 116/62 (80) 99 Room Air 06/10/22 17:00 37.0 16 108/70 (83) 100 Room Air 06/10/22 17:00 Room Air 06/10/22 16:50 15 116/71 (86) 100 Room Air 06/10/22 16:45 OxyMask 2.00 06/10/22 16:40 17 122/79 (93) 100 OxyMask 2.00 06/10/22 16:30 20 114/77 (89) 100 OxyMask 4.00 06/10/22 16:20 36.7 18 109/82 (91) 99 OxyMask 6.00 06/10/22 16:20 OxyMask 6.00 06/10/22 14:07 36.6 72 18 122/81 (95) 98 Room Air I & O 06/11/22 07:00 Intake Total 3000 ml Output Total 2890 ml Balance 110 ml Vital signs are stable. Patient is afebrile. Abdomen is benign. The surgical incisions are clean and dry. Extremities show no clubbing or cyanosis. There is no Homans' sign. Assessment and plan Postoperative day #1 doing well plan is for discharge home with follow-up In clinic Final Diagnosis Menometrorrhagia DENNIS MAYO MD Jun 11, 2022 07:12
[2022-06-11 07:50] VITALS: BP 129/74
[2022-06-11] MEDS ORDERED: SIMETHICONE 80 MG (MYLICON) CHEW PO ONE (08:00)
[2022-06-11 08:30] VITALS: BP 129/74
[2022-06-11] MEDS ORDERED: DOCUSATE SODIUM 100 MG (COLACE) CAP PO SCH (09:00)
--- NOTE | 2022-06-11 10:23 | Anesthesia-General Post-Op ---
General Patient Condition Mental Status/LOC: Same as Preop Cardiovascular: Satisfactory Nausea/Vomiting: Absent Respiratory: Satisfactory Pain: Controlled Complications: Absent Post Op Complications Complications None Follow Up Care/Instructions Patient Instructions None needed. Anesthesia/Patient Condition Patient Condition Patient is doing well, no complaints, stable vital signs, no apparent adverse anesthesia problems. No complications reported per nursing. NAVEEN TONG CRNA Jun 11, 2022 10:23
[2022-06-11] MEDS ORDERED: IBUPROFEN 800 MG (MOTRIN) TAB PO SCH (16:15)
== END 2022-06-11 08:30 | disposition home or self-care (01) ==
LOC: SDC 12:50 → WS 17:19 → SDC 06-11 08:30
PROVIDERS: ATTEND Obstetrics & Gynecology
DX: N92.1 Excessive and frequent menstruation with irregular cycle (principal); K38.0 Hyperplasia of appendix; N83.8 Other noninflammatory disorders of ovary, fallopian tube and broad ligament; F17.210 Nicotine dependence, cigarettes, uncomplicated
CPT/HCPCS: 36415; 84703; 85025; 87081; 94664

== ENCOUNTER 2023-01-07 14:04 | Emergency (ER) | payer OTHER ==
[~2023-01-07] VITALS: Ht 157 cm; Wt 78.0 kg
[~2023-01-07 14:04] MED LIST changes: +ALBU8.5H6 IH; +OXYC1TAB87 PO; -RT-ALBUINH IH
[2023-01-07 14:12] VITALS: BP 125/86
--- NOTE | 2023-01-07 14:30 | ED Lower Extremity ---
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 She was walking down some steps at work and twisted her right ankle. She states she heard a loud pop. She states there is some swelling to the lateral aspect of her right ankle. She states she feels like her foot is a little "numb". No significant swelling. No other complaints of injury. Onset: this morning (11:30 am) Pain/Injury Location: right ankle Method of Injury: twisted (walking down stairs) Modifying Factors: Worse With Movement; Improves With Rest Allergies and Home Medications Allergies Coded Allergies: No Known Drug Allergies (Unverified , 06/08/22) Patient Home Medication List Home Medication List Reviewed: Yes Albuterol Sulfate (Ventolin Hfa) 1 Puff Puff, 2 PUFF IH Q4H, (Reported) Entered as Reported by: BRONSON STAFFORD on 06/08/22 0947 Docusate Sodium (Docusate Sodium) 100 Mg Capsule, 100 MG PO BID Prescribed by: DENNIS ALMONTE on 06/10/22 163 Ibuprofen (Ibuprofen) 800 Mg Tablet, 800 MG PO Q6H Prescribed by: DENNIS ALMONTE on 06/10/22 163 Metoprolol Succinate (Metoprolol Succinate) 25 Mg Tab.er.24h, 25 MG PO HS, (Reported) Entered as Reported by: BRONSON STAFFORD on 06/08/22 0947 Oxycodone HCl/Acetaminophen (Percocet 5-325 mg Tablet) 1 Each Tablet, 1 TAB PO Q4H PRN for PAIN-MODERATE (5-7) Prescribed by: DENNIS ALMONTE on 06/10/22 163 Review of Systems Constitutional: see HPI Musculoskeletal: joint pain (right lateral ankle pain) Skin: no symptoms reported Psychiatric/Neurological: Other (foot feels a little "numb") All Other Systems Reviewed Negative Unless Noted: Yes Past Niqaulp-Qtwmms-Pcfxmx Hx Patient Social History Tobacco Use?: Yes Tobacco type used: Cigarettes Smoking Status: Current Everyday Smoker Substance use?: No Alcohol Use?: No Immunizations Up To Date Tetanus Booster (TDap): Unknown First/Initial COVID19 Vaccinat: 2020 Second COVID19 Vaccination Chao: 2020 Third COVID19 Vaccination Date: 2020 Seasonal Allergies Seasonal Allergies: Yes Past Medical History Surgery/Hospitalization HX: HYSTERECTOMY, HTN, APPE Surgeries: Yes (Broken elbow 1994, [facility] 2011, D&C) Adenoidectomy, Section, Orthopedic, Tonsillectomy Respiratory: No Currently Using CPAP: No Currently Using BIPAP: No Cardiac: Yes Hypertension Neurological: Yes (TENSION HEADACHES) Headaches /Migraines Reproductive Disorders: Yes Female Reproductive Disorders: Menstrual Problems, Endometriosis, Polycystic Ovarian Dis Sexually Transmitted Disease: No HIV/AIDS: No Genitourinary: Yes UTI-Chronic Gastrointestinal: No Musculoskeletal: Yes (Fractured elbow at 5 years old) Fractures Endocrine: No HEENT: No (GLASSES) Loss of Vision: Denies Hearing Impairment: Denies Cancer: No Psychosocial: Yes (While ) Depression Integumentary: No Blood Disorders: No Adverse Reaction/Blood Tranf: No (N/A) Family Medical History Alcoholism 03 FATHER Family history: Diabetes mellitus Grandparents (Maternal Grandfather Paternal Grandfather) Family history: Hypertension 03 MOTHER History of drug abuse 03 MOTHER (Narcotics) Hypertension Grandparents (Maternal Grandmother) Psychosocial problem 03 MOTHER (Depression and bipolar) No Family History of: Cancer Congenital heart disease Congestive heart failure Family history: Arthritis Family history: Asthma Family history: Breast disease Family history: Cardiovascular disease Family history: Thyroid disorder Headache Hearing loss Heart disease History of - anemia Hypercholesterolemia Infertile Kidney disease Seizure disorder Stroke Tuberculosis No Pertinent Family Hx Physical Exam Vital Signs Vital Signs - First Documented 01/07/23 14:12 Temp 36.8 Pulse 73 Resp 20 B/P (MAP) 125/86 (99) Pulse Ox 100 O2 Delivery Room Air Capillary Refill : Less Than 3 Seconds Height, Weight, BMI Height: 5'2.00" Weight: 175lbs. 0.0oz. 79.437923yn; 31.00 BMI Method:Stated General Appearance: WD/WN, no apparent distress Cardiovascular: regular rate, rhythm Hips: bilateral hip non-tender, bilateral hip normal inspection, bilateral hip normal range of motion, bilateral hip no evidence of injury Legs: bilateral leg non-tender, bilateral leg normal inspection, bilateral leg normal range of motion, bilateral leg no evidence of injury Knees: bilateral knee non-tender, bilateral knee normal inspection, bilateral knee normal range of motion, bilateral knee no evidence of injury Ankles: right ankle swelling (mild; mild tenderness to palpation lateral malleolus) Feet: bilateral foot non-tender, bilateral foot normal inspection, bilateral foot normal range of motion, bilateral foot no evidence of injury Neurologic/Tendon: normal motor functions, normal tendon functions Neurologic/Psychiatric: alert, normal mood/affect, oriented x 3, other (subjective very mild decreased sensation in the foot) Skin: normal color, warm/dry Progress/Results/Core Measures Results/Orders My Orders Orders - JUAN HERNANDEZ MD Ankle, Right, 2 Views (01/07/23 14:23) Vital Signs/I&O 01/07/23 14:12 Temp 36.8 Pulse 73 Resp 20 B/P (MAP) 125/86 (99) Pulse Ox 100 O2 Delivery Room Air Blood Pressure Mean: 99 Diagnostic Imaging Diagonstic Imaging: Xray Comments [facility], [place] NAME: DANIELLA BALBUENA [facility] REC#: [id number] PT STATUS: REG ER : 1990 PHYSICIAN: JUAN HERNANDEZ MD ADMIT DATE: 01/07/23/ER Draft Date of Exam:01/07/23 ANKLE, RIGHT, 2 VIEWS EXAMINATION: Right ankle radiographs, 2 views. COMPARISON: None. HISTORY: 32-year-old female, right ankle pain. Injury. FINDINGS: There are some limitations of evaluation given the 2 view technique. There is also a large oxbpx-ud-dbpc of acquisition. There is no identified acute fracture. The alignment of the ankle mortise is grossly unremarkable. There is no radiopaque foreign body. There is no tibiotalar joint effusion. IMPRESSION: 1. No identified acute bony abnormality of the right ankle. Dictated on workstation # [id number] Dict: 01/07/23 1432 Trans: 01/07/23 1434 [facility] [id number] Interpreted by: PAVAN FAIR MD Electronically signed by: Departure Impression Primary Impression: Sprain and strain of ankle Disposition: HOME, SELF-CARE Condition: Stable Departure-Patient Inst. Decision time for Depature: 14:42 Referrals: LYDIA MCCONNELL MD (PCP) Primary Care Physician Patient Instructions: Ankle Sprain ED Add. Discharge Instructions: You can Aidan wrap the ankle as needed for comfort and stability. Qmcu-yyi-lxxsqes ibuprofen 3 tablets which is 600 mg every 6 hours as needed for pain. Always take ibuprofen with food. Elevate to decrease swelling. Return to the emergency department for any new, concerning or emergent complaints. Work/School Note: Work Release Form Date Seen in the Emergency Department: Jan 07, 2023 Return to Work: Jan 08, 2023 Copy Copies To 1: LYDIA MCCONNLEL MD, KATHRYN M MD Jan 07, 2023 14:30
--- NOTE | 2023-01-07 14:35 | Diagnostic Imaging Report ---
EXAMINATION: Right ankle radiographs, 2 views. COMPARISON: None. HISTORY: 32-year-old female, right ankle pain. Injury. FINDINGS: There are some limitations of evaluation given the 2 view technique. There is also a large zflln-yx-city of acquisition. There is no identified acute fracture. The alignment of the ankle mortise is grossly unremarkable. There is no radiopaque foreign body. There is no tibiotalar joint effusion. IMPRESSION: 1. No identified acute bony abnormality of the right ankle. Dictated by: Dictated on workstation # [id number]
== END 2023-01-07 14:45 | disposition home or self-care (01) ==
LOC: EDUNIT# 14:04 → ER 14:08
DX: S93.401A Sprain of unspecified ligament of right ankle, initial encounter (principal); S96.911A Strain of unspecified muscle and tendon at ankle and foot level, right foot, initial encounter; F17.210 Nicotine dependence, cigarettes, uncomplicated; Z28.311 Partially vaccinated for COVID-19; X50.1XXA Overexertion from prolonged static or awkward postures, initial encounter; Y93.01 Activity, walking, marching and hiking; Y92.59 Other trade areas as the place of occurrence of the external cause; Y99.0 Civilian activity done for income or pay
CPT/HCPCS: 73600